=== PATIENT | male | born 1990 | race Caucasian/White ===

== ENCOUNTER → 2017-06-28 | Outpatient (CLI) | payer OTHER | LOC: LAB EV 15:36 | DX: J02.9 Acute pharyngitis, unspecified (principal) | CPT/HCPCS: 87070 ==

== ENCOUNTER → 2019-04-22 | Outpatient (CLI) | payer OTHER ==
[2019-04-22 11:04] LABS: BASOPHILS ABSOLUTE AUTO 0.04 K/mm3 (0.00-0.23); BASOPHILS PERCENT AUTO 0 % (0-2); EOSINOPHILS ABSOLUTE AUTO 0.01 K/mm3 (0.00-0.68); EOSINOPHILS PERCENT AUTO 0 % (0-6); Hematocrit 44.8 % (37.0-53.0); Hemoglobin 16.1 g/dL (13.5-17.5); IMMATURE GRAN ABSOLUTE AUTO 0.06 K/mm3 (0.00-0.10); IMMATURE GRAN PERCENT AUTO 0 % (0-1); LYMPHOCYTES ABSOLUTE AUTO 1.55 K/mm3 (0.84-5.20); LYMPHOCYTES PERCENT AUTO 10 % (21-46); MONOCYTES ABSOLUTE AUTO 0.84 K/mm3 (0.16-1.47); MONOCYTES PERCENT AUTO 6 % (4-13); Mean Corpuscular HGB 32.2 pg (26.0-34.0); Mean Corpuscular HGB Conc 35.9 g/dL (31.5-36.5); Mean Corpuscular Volume 90 fL (80-100); Mean Platelet Volume 8.8 fL (9.1-12.4); NEUTROPHILS ABSOLUTE AUTO 12.68 K/mm3 (1.96-9.15); NEUTROPHILS PERCENT AUTO 84 % (41-73); Platelet Count 376 K/mm3 (150-400); RDW Coefficient Variation 11.8 % (11.7-14.2); RDW Standard Deviation 38.1 fL (35.1-46.3); White Blood Cell Count 15.18 K/mm3 (4.00-11.30)
[2019-04-22 11:45] LABS: Alanine Aminotransfer (ALT/SGP 15 U/L (12-78); Albumin, Blood 4.7 g/dL (3.4-5.0); Albumin/Globulin Ratio 1.5 (0.8-1.8); Alk Phos 68 U/L (40-126); Anion Gap 18 mmol/L (6-16); Aspartate Aminotrans (AST/SGOT 19 U/L (12-37); Bilirubin, Total 0.8 mg/dL (0.1-1.0); Blood Urea Nitrogen 14 mg/dL (8-24); CO2, Blood 20 mmol/L (21-32); Calcium, Blood 9.8 mg/dL (8.5-10.1); Chloride, Blood 102 mmol/L (98-108); Globulin, Blood 3.1 g/dL (2.2-4.0); Glomerular Filtration Rate >60 (60-); Glucose, Blood 101 mg/dL (70-99); Potassium, Blood 3.7 mmol/L (3.5-5.5); Sodium, Blood 140 mmol/L (136-145); Thyroid Stimulating Hormone 0.932 uIU/mL (0.360-4.800); Total Protein, Blood 7.8 g/dL (6.4-8.2)
== END | disposition home or self-care (01) ==
LOC: LAB EV 11:00 → LAB SHORT 11:00
PROVIDERS: Physician Assistant Medical
DX: R06.00 Dyspnea, unspecified (principal); R53.83 Other fatigue
CPT/HCPCS: 80053; 84443; 85025

== ENCOUNTER 2023-04-24 10:36 | Day surgery (SDC) | payer OTHER ==
[~2023-04-24] VITALS: Ht 182.9 cm; Wt 88.4 kg
[~2023-04-24 10:36] MED LIST: OMEP20ER PO; SIMETHICONE125 MG PO
[2023-04-24 12:44] VITALS: BP 117/85
--- NOTE | 2023-04-24 17:18 | NUR ---
04/24/23 1718 [facility] WHILE IN STEPDOWN PATIENT RECOVERED FROM PROCEDURE WELL, NOT NOTING ANY PAIN OR NAUSEA, BUT DID EXPERIENCE SOME ANXIETY FIRST FROM ICE BEING IN HIS WATER (HIS MOTHER NOTED THAT "ITS THE ICE, HE DOESN'T LIKE ICE IN HIS WATER") AND THEN FROM THE IV STILL BEING IN PLACE. PATIENT STARTED BREATHING VERY FAST AND DEEP AND RN AND HIS MOTHER ENCOURAGED HIM TO SLOW HIS BREATHING AND REMIND HIM THAT THE PROCEDURE WAS COMPLETED. MOTHER NOTED HE HAD ANXIETY ATTACKS. PATIENT REPORTED SOME LIGHTHEADEDNESS, BUT AFTER THE IV WAS REMOVED, WATER WITHOUT ICE SUPPLIED, AND HE PUT HIS CLOTHES BACK ON AND HE SAT UP IN THE BED HE APPEARED TO BE DOING MUCH BETTER. PATIENT APPEARED TO BE BREATHING NORMALLY, LUNGS CLEAR, AND OXYGEN SATURATION AT BASELINE PRIOR TO DISCHARGE. PATIENT ALSO STATED PRIOR TO DISCHARGE THAT HE WAS FEELING AND BREATHING MUCH BETTER. PATIENT EXPRESSED READINESS TO GO HOME.
== END 2023-04-24 12:38 | disposition home or self-care (01) ==
LOC: ORSCSDS 10:36
PROVIDERS: Specialist
PROC: 0DB58ZX Excision of Esophagus, Via Natural or Artificial Opening Endoscopic, Diagnostic (ICD-10-PCS; principal; 2023-04-24 12:00)
PROC: 0DB98ZX Excision of Duodenum, Via Natural or Artificial Opening Endoscopic, Diagnostic (ICD-10-PCS; principal; 2023-04-24 12:00)
PROC: 0DBE8ZX Excision of Large Intestine, Via Natural or Artificial Opening Endoscopic, Diagnostic (ICD-10-PCS; principal; 2023-04-24 12:00)
PROC: 0DBB8ZX Excision of Ileum, Via Natural or Artificial Opening Endoscopic, Diagnostic (ICD-10-PCS; principal; 2023-04-24 12:00)
PROC: 0DB68ZX Excision of Stomach, Via Natural or Artificial Opening Endoscopic, Diagnostic (ICD-10-PCS; principal; 2023-04-24 12:00)
DX: R10.9 Unspecified abdominal pain (principal); K21.9 Gastro-esophageal reflux disease without esophagitis; R93.89 Abnormal findings on diagnostic imaging of other specified body structures; K64.8 Other hemorrhoids; F41.9 Anxiety disorder, unspecified
CPT/HCPCS: 88305; 88312; 88342; J2250; J2704; J7120